=== PATIENT | female | born 1950 | race Caucasian/White ===

== ENCOUNTER → 2018-10-17 | Outpatient (CLI) | payer MEDICARE, OTHER, SELFPAY ==
--- NOTE | 2018-10-17 11:39 | RAD_ITS ---
STUDY: X-RAY - LEFT KNEE REASON FOR EXAM: Female, 68 years old. Medial pain TECHNIQUE: 4 view(s) of the knee. COMPARISON: None. FINDINGS: Normal visualized distal femur. Normal visualized proximal tibia and fibula. Normal proximal tibiofibular articulation. There is mild degenerative arthrosis of the medial femorotibial compartment. Normal lateral femorotibial compartment. There is mild degenerative arthrosis of the patellofemoral articulation. The soft tissue structures are unremarkable. RAD/Knee 4 or More Views IMPRESSION: Mild arthrosis, no demonstrated fracture Electronically Signed: Bernardino Abdul MD at 11:57 EDT , Service support ,
== END | disposition home or self-care (01) ==
LOC: MTRAD 11:36
PROVIDERS: Family Provider Family Medicine; PCP Family Medicine; Referring Provider Family Medicine; Visit Provider Family Medicine
DX: M25.562 Pain in left knee (principal)
CPT/HCPCS: 73564

== ENCOUNTER 2018-11-14 22:09 | Emergency (ER) | payer MEDICARE, OTHER, SELFPAY ==
[2018-11-14 22:10] VITALS: BP 157/80; PULSE 89; RESP 18; TEMP 36.4; O2SAT 95; BMI 29.1
--- NOTE | 2018-11-14 22:15 | RAD_ITS ---
STUDY: X-RAY - LEFT WRIST REASON FOR EXAM: Female, 68 years old. Status post fall. TECHNIQUE: 3 view(s) of the wrist were obtained. COMPARISON: None. FINDINGS: Acute, impacted fracture of the distal radius with small comminuted fragments. No articular extension. No displacement. There is moderate apex volar angulation. Distal ulna, carpal bones, in visualized metacarpal bones are intact. Joint spaces are well-maintained. There is marked soft tissue swelling about the wrist. RAD/Wrist min 3 Views IMPRESSION: Acute fracture of the distal radius, as described. Electronically Signed: Buffy Carranza MD at 22:38 EDT Tel , Service support ,
[2018-11-14] MEDS: HYDROcodone Bitartrate/Apap 5/325 Tablet PO (23:16)
--- NOTE | 2018-11-15 00:07 | RAD_ITS ---
STUDY: X-RAY - LEFT WRIST REASON FOR EXAM: Female, 68 years old. Post reduction TECHNIQUE: 2 view(s) of the wrist were obtained. COMPARISON: November 14, 2018 at 10:17 PM FINDINGS: The impacted dorsally angulated fracture of the distal radius noted in the earlier examination has been reduced. There is a minimal degree of comminution. The radiocarpal articulation is normal. The ulnar styloid is not fractured. Soft tissue swelling of the wrist. A cast is in place RAD/Wrist 2 Views IMPRESSION: The dorsally angulated impacted fracture of the distal radius has been reduced. Excellent alignment of the bony fragments. Electronically Signed: Allen Huizar MD at 2:02 EDT Tel , Service support ,
--- NOTE | 2018-11-15 00:31 | ED.VISSUMM ---
- ER Visit Summary Date of Service: 11/15/18 Chief Complaint: Left wrist injury History of Present Illness: The patient is a 68 F left-hand dominant. She fell on her outstretched left hand. Noticed a deformity to her left wrist. Physical Examination: Patient deformity to left wrist. Skin closed. Neurovascular intact distally. No other findings. Test Results: X-rays show distal radius fracture with dorsal angulation. Emergency Department Course and Treatment: Patient was discussed with Dr. Sanders. Hematoma block performed by me. Sterile technique. Closed reduction performed and patient splinted by me. Patient tolerated this well. Repeat x-rays showed much improved alignment. Patient is neurovascular intact. Tolerating the splint well. Refer to Dr. Yusuf for follow-up. Rest, ice, elevate. [place] for pain. Treatment Plan: As above Disposition: Discharge Impression: 1. Left distal radius fracture, closed, initial encounter This note was generated with [employer] dictation software. It may contain incorrect words, spelling, and punctuation that were not noted in review of the chart prior to signing ED Disposition - Plan for ED Patient: Referrals: Vikram Prince MD [Primary Care Provider] -
--- NOTE | 2018-11-15 00:32 | DCINST.ED_ITS ---
ED Disposition - Plan for ED Patient: Instructions: FRACTURE, Wrist [General] Prescriptions: Hydrocodone Bitart/Apap 5-325 [[place] 5MG-325MG] 1 tab PO Q6H PRN PRN 3 Days #12 tab PRN Reason: Pain Prescription Printed Referrals: Kip Salcido DO [STAFF PHYSICIAN] -
[2018-11-15 00:39] VITALS: BP 137/78; PULSE 85; RESP 16; O2SAT 94
== END 2018-11-15 00:40 | disposition home or self-care (01) ==
PROVIDERS: Emergency Provider Emergency Medicine; Family Provider Family Medicine; PCP Family Medicine
DX: S52.502A Unspecified fracture of the lower end of left radius, initial encounter for closed fracture (principal); W18.30XA Fall on same level, unspecified, initial encounter; Y93.89 Activity, other specified; Y92.89 Other specified places as the place of occurrence of the external cause; Y99.8 Other external cause status
CPT/HCPCS: 25605; 73100; 73110; 99283

== ENCOUNTER → 2018-12-11 | Outpatient (CLI) | payer MEDICARE, OTHER, SELFPAY ==
[2018-11-14 22:10] VITALS: BMI 29.1
--- NOTE | 2018-12-11 09:51 | BD_ITS ---
STUDY: DUAL ENERGY X-RAY ABSORPTIOMETRY / DXA REASON FOR EXAM: Female, 68 years old. The patient is postmenopausal. Loss of height. TECHNIQUE: Bone Mineral Density (BMD) measurements of lumbar spine and bilateral hips were obtained. COMPARISON: Comparison is made with prior study dated August 09, 2016. FINDINGS: Lumbar Spine (L1-L4): g/cm2 (1.482) / T-score (2.3) / Z-score (4.0) Findings are suggestive of normal bone density with a low fracture risk. Left Femur Total: g/cm2 (0.881) / T-score (-1.0) / Z-score (0.4) Left Femoral Neck: g/cm2 (0.833) / T-score (-1.5) / Z-score (0.2) Right Femur Total: g/cm2 (0.836) / T-score (-1.4) / Z-score (0.1) Right Femoral Neck: g/cm2 (0.772) / T-score (-1.9) / Z-score (-0.2) The T-Scores on the most recent prior examination were: Lumbar Spine (L1-L4): There has been improvement of bone density since the previous examination. Left Femur Total: which represents a worsening of 1.6%. Right Femur Total: which represents an improvement of 6.9%. BD/Dexa Bone Density Study IMPRESSION: The patient is considered osteopenic as outlined below according to World [employer] Organization (WHO) criteria with a moderate fracture risk. There has been improvement of bone density since the previous examination. Reference Information: The T-score is the number of standard deviations above or below the standard which is normal for young adults at their peak bone mineral density. The World Health Organization (WHO) interprets the T-scores as follows: Above -1 Normal bone density Between -1 and -2.5 Osteopenia Equal to / or below -2.5 Osteoporosis As a practical clinical guideline, osteopenia may be graded as follows: Mild -1 through -1.5 Moderate -1.6 through -2.0 Severe -2.1 through -2.4 The Z-score is the number of standard deviations above or below age-matched controls. A Z-score of less than -1.5 would be considered abnormal. References: 1. NIH Osteoporosis and Related Bone Diseases http://www.osteo.org 2. International Society for Clinical Densitometry http://www.iscd.org 3. National Osteoporosis Foundation http://www.nof.org Electronically Signed: Jaswant Patterson, at 8:46 EDT , Service support ,
== END | disposition home or self-care (01) ==
LOC: OPBD 09:34
PROVIDERS: Family Provider Family Medicine; PCP Family Medicine; Referring Provider Family Medicine; Visit Provider Family Medicine
DX: M81.0 Age-related osteoporosis without current pathological fracture (principal)
CPT/HCPCS: 77080

== ENCOUNTER 2019-02-05 07:30 | Outpatient (RCR) | payer MEDICARE, OTHER, SELFPAY ==
--- NOTE | 2018-12-12 15:23 | HP.OTEVAL_ITS ---
Patient's Visit Information JONEL ORTEGA is a 68 year old F, referred to Occupational Therapy by Queenie Keating, with a diagnosis of left intartic fx of lower end left radius. Date of Evaluation: 12/12/18 Occupational Therapist: Odilia Bess, JEBR/Evelyne, CHT - Subjective Subjective: This 68 year old female was seen for OT/CHT eval with dx of distal radius fx. pt states she fell down her steps when she went to let her dogs outside. Pt states she fell on . sx was on 11/28/18 pt arrives with custom orthosis and states no concerns with orthosis fit. pt states she has some pain but not much. Reports custom orthosis is fitting her well at this time. pt states she is limited with all ADLs and IADL tasks at this time. pt returns to on Jan.08 - Pain left hand/wrist 0 Pain Intensity Range: 0, 4 - Objective Objective/Observation: incison is clean and dry - ROM Forearm: right 80 left 45 Wrist: right 70/65 left 30/15 ROM Comments: left RD 10 UD 10. 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 Pt will demo an increase in lateral and tripod pinch by 2# to increase pts independent with opening baggies, containers at [facility] by D/C. Goal:: pt will demo a increase in left forearm supination to 70* or greater to incrase ind with bilateral hand cooking tasks by d/c. pt will demo a increase in left wrist flex/ext by 20* to increase ind with bathing and dressing tasks by d/c Goal:: Pt will report pain no greater than 1/10 with use of affected hand with BADLs and IADLs by d/c. Goal:: pt will report a decrease in tingling sensation by 80% to increase pts sleep throught the night by d/c Goal:: Pt will demo understanding of scar mtg. by end of 2nd session to increase tissue extensibility to limit scar adhesions and allow full tendons function by d/c. - Rehabilitation General Assessment: Pt 2 weeks s/p ORIF left distal radius-(pt is no weight bearing until week 8 post op). pt demo healing fx,limited ROM and weakness that prevents her from performing her ADLs and IADLs at IND. level. PT would benefit from skilled OT services 1-2 x week for 4-6 weeks to return pt to PLOF. Order request eval/treat PROM, AROM , AAROM -Today pt was ed.on edema control, scar mtg, and AROM, AAROM and PROM. Pt was given handouts and demo understanding of ex and agree to POC. Rehabilitation Potential: Excellent - Anticipated Interventions Anticipated Interventions: A/AAROM/PROM, Triggerpoint Release, Sensory Retraining, Modalities, Orthoses, Joint Protection/Energy Conservation, Ergonomic Education Other Interventions: strengthening when cleared by ortho - Visit Plan Frequency: 1-2x /Week Duration: 4-6 Weeks General Plan: engage pt with AROM, PROM ex to promote forearm sup,wrist flex/ext and composite fist to increase pts ind. with ADLs and IADLS TEXT: Thank you for the opportunity to evaluate your patient. For Medicare and Medicare HMO plans, please review the plan of care and approve it. It will need to be FAXED BACK to us at [phone] for Medicare purposes. Please let me know if there are questions or concerns regarding this plan of care. Physician Signature: Date:
--- NOTE | 2018-12-31 16:15 | HP.OTEVAL ---
Patient's Visit Information JONEL ORTEGA is a 68 year old F, referred to Occupational Therapy by Queenie Keating, with a diagnosis of left intartic fx of lower end left radius. Date of Evaluation: 12/12/18 Occupational Therapist: Odilia Bess, JEBR/Evelyne, CHT - Subjective Subjective: This 68 year old female was seen for OT/CHT eval with dx of distal radius fx. pt states she fell down her steps when she went to let her dogs outside. Pt states she fell on . sx was on 11/28/18 pt arrives with custom orthosis and states no concerns with orthosis fit. pt states she has some pain but not much. Reports custom orthosis is fitting her well at this time. pt states she is limited with all ADLs and IADL tasks at this time. pt returns to on Jan.08 - Pain left hand/wrist 2 Pain Intensity Range: 0, 4 - Objective Objective/Observation: incison is clean and dry - ROM Forearm: right 80 left 45 Wrist: right 70/65 left 30/15 ROM Comments: left RD 10 UD 10. 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 Pt will demo an increase in lateral and tripod pinch by 2# to increase pts independent with opening baggies, containers at [facility] by D/C. Goal:: pt will demo a increase in left forearm supination to 70* or greater to incrase ind with bilateral hand cooking tasks by d/c. pt will demo a increase in left wrist flex/ext by 20* to increase ind with bathing and dressing tasks by d/c Goal:: Pt will report pain no greater than 1/10 with use of affected hand with BADLs and IADLs by d/c. Goal:: pt will report a decrease in tingling sensation by 80% to increase pts sleep throught the night by d/c Goal:: Pt will demo understanding of scar mtg. by end of 2nd session to increase tissue extensibility to limit scar adhesions and allow full tendons function by d/c. - Rehabilitation General Assessment: Pt 2 weeks s/p ORIF left distal radius-(pt is no weight bearing until week 8 post op). pt demo healing fx,limited ROM and weakness that prevents her from performing her ADLs and IADLs at IND. level. PT would benefit from skilled OT services 1-2 x week for 4-6 weeks to return pt to PLOF. Order request eval/treat PROM, AROM , AAROM -Today pt was ed.on edema control, scar mtg, and AROM, AAROM and PROM. Pt was given handouts and demo understanding of ex and agree to POC. Rehabilitation Potential: Excellent - Anticipated Interventions Anticipated Interventions: A/AAROM/PROM, Triggerpoint Release, Sensory Retraining, Modalities, Orthoses, Joint Protection/Energy Conservation, Ergonomic Education Other Interventions: strengthening when cleared by ortho - Visit Plan Frequency: 1-2x /Week Duration: 4-6 Weeks General Plan: engage pt with AROM, PROM ex to promote forearm sup,wrist flex/ext and composite fist to increase pts ind. with ADLs and IADLS TEXT: Thank you for the opportunity to evaluate your patient. For Medicare and Medicare HMO plans, please review the plan of care and approve it. It will need to be FAXED BACK to us at [phone] for Medicare purposes. Please let me know if there are questions or concerns regarding this plan of care. Physician Signature: Date:
--- NOTE | 2019-01-04 10:36 | HP.OTREVAL ---
Queenie Keating, It has been my pleasure to treat JONEL ORTEGA over the last 8 visits for left intartic fx of lower end left radius. Please see the progress note below for an update on the occupational therapy plan of care! Subjective: pt states she is doing good- notice stiffenss in AM- reports she is improving with ADls and out of brace when sitting, eating and doing dishes. Objective/Function: left wrist 60/30. left forearm supination 70. left it instructor strength 15#. pt is progressing well with her ROM and strength is returning with her engaging in her daily occupations. Plan Frequency: 1x/Week Duration: 3 Weeks Plan: will cont with PRE as laina Goals - Goals Goal:: PT will demo an increase in it instructor strength by 20# to increase independent with basic occupations of daily living to return pt to [facility] by D/C. Pt will demo an increase in lateral and tripod pinch by 2# to increase pts independent with opening baggies, containers at [facility] by D/C. Goal:: pt will demo a increase in left forearm supination to 70* or greater to incrase ind with bilateral hand cooking tasks by d/c. pt will demo a increase in left wrist flex/ext by 20* to increase ind with bathing and dressing tasks by d/c Goal:: Pt will report pain no greater than 1/10 with use of affected hand with BADLs and IADLs by d/c. Goal:: pt will report a decrease in tingling sensation by 80% to increase pts sleep throught the night by d/c Goal:: Pt will demo understanding of scar mtg. by end of 2nd session to increase tissue extensibility to limit scar adhesions and allow full tendons function by d/c. Anticipated Interventions Anticipated Interventions: A/AAROM/PROM, Triggerpoint Release, Sensory Retraining, Modalities, Orthoses, Joint Protection/Energy Conservation, Ergonomic Education Other Interventions: strengthening when cleared by ortho Please do not hesitate to contact me at [phone] by phone or if you have questions or concerns regarding this new plan of care! Sincerely, Odilia Bess, OTR/L, CHT
--- NOTE | 2019-02-05 08:02 | OTREVAL_ITS ---
Queenie Keating, It has been my pleasure to treat JONEL ORTEGA over the last 12 visits for left intartic fx of lower end left radius. Please see the progress note below for an update on the occupational therapy plan of care! Subjective: pt states she is doing good- has increased swelling no pain just swelling following tasks Objective/Function: pt demo with 62/35. 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 pt reports she is performing ADLS and IADls with min. difficulty. Pt has made good gains with ROM and strength Plan Plan: pt to work for 2 weeks on he HEP Goals - Goals Goal:: PT will demo an increase in emergency veterinary technician strength by 20# to increase independent with basic occupations of daily living to return pt to [facility] by D/C. Pt will demo an increase in lateral and tripod pinch by 2# to increase pts independent with opening baggies, containers at [facility] by D/C. Goal:: pt will demo a increase in left forearm supination to 70* or greater to incrase ind with bilateral hand cooking tasks by d/c. pt will demo a increase in left wrist flex/ext by 20* to increase ind with bathing and dressing tasks by d/c Goal:: Pt will report pain no greater than 1/10 with use of affected hand with BADLs and IADLs by d/c. Goal:: pt will report a decrease in tingling sensation by 80% to increase pts sleep throught the night by d/c Goal:: Pt will demo understanding of scar mtg. by end of 2nd session to increase tissue extensibility to limit scar adhesions and allow full tendons function by d/c. Anticipated Interventions Anticipated Interventions: A/AAROM/PROM, Triggerpoint Release, Sensory Retraining, Modalities, Orthoses, Joint Protection/Energy Conservation, Ergonomic Education Other Interventions: strengthening when cleared by ortho Please do not hesitate to contact me at [phone] by phone or if you have questions or concerns regarding this new plan of care! Sincerely, Odilia Bess, OTR/L, CHT
--- NOTE | 2019-02-08 10:25 | HP.OTDCSUM ---
HP - OT D/C Summary It has been my pleasure to treat JONEL ORTEGA under orders from Queenie Keating, for the diagnosis of left intartic fx of lower end left radius for a total of 12 visit(s). Please see the following information for a summary of their discharge status. - Overall Improvement % Improvement: 80 - Objective Objective/Function: pt demo with 62/35. left partition notcher strength 25-30#. pt reports she is performing ADLS and IADls with min. difficulty. Pt has made good gains with ROM and strength - Goals Patient Goals: Regain Mobility, Regain Strength, Decrease Pain, Improve Fine Motor Skills, Use Hand/Wrist/Arm Normally Again, Sleep Better, Decrease Tingling/Numbness, Increase ROM, Be More Independent in ADLS Goal:: PT will demo an increase in partition notcher strength by 20# to increase independent with basic occupations of daily living to return pt to [facility] by D/C. Pt will demo an increase in lateral and tripod pinch by 2# to increase pts independent with opening baggies, containers at [facility] by D/C. Goal:: pt will demo a increase in left forearm supination to 70* or greater to incrase ind with bilateral hand cooking tasks by d/c. pt will demo a increase in left wrist flex/ext by 20* to increase ind with bathing and dressing tasks by d/c Goal:: Pt will report pain no greater than 1/10 with use of affected hand with BADLs and IADLs by d/c. Goal:: pt will report a decrease in tingling sensation by 80% to increase pts sleep throught the night by d/c Goal:: Pt will demo understanding of scar mtg. by end of 2nd session to increase tissue extensibility to limit scar adhesions and allow full tendons function by d/c. - Plan Plan: pt to cont with her HEP - D/C Information If there are questions or concerns regarding this patient's occupational therapy, please fell free to call me at [phone]. Thank you for the referral of this patient. Sincerely, Odilia Bess, OTR/L, CHT
== END 2019-02-05 19:00 | disposition home or self-care (01) ==
LOC: OT 07:30
PROVIDERS: Family Provider Family Medicine; PCP Family Medicine; Referring Provider Orthopaedic Surgery Hand Surgery; Visit Provider Orthopaedic Surgery Hand Surgery
DX: S52.572D Other intraarticular fracture of lower end of left radius, subsequent encounter for closed fracture with routine healing (principal)
CPT/HCPCS: 97110; 97140; 97166; 97530

== ENCOUNTER → 2019-05-06 | Outpatient (CLI) | payer MEDICARE, OTHER, SELFPAY ==
--- NOTE | 2019-05-06 15:56 | RAD_ITS ---
STUDY: X-RAY - LEFT KNEE REASON FOR EXAM: Female, 69 years old. LEFT knee pain TECHNIQUE: 4 view(s) of the knee. COMPARISON: None. FINDINGS: Normal visualized distal femur. Normal visualized proximal tibia and fibula. Normal proximal tibiofibular articulation. There is no demonstrated fracture. Normal medial femorotibial compartment. Normal lateral femorotibial compartment. Normal patellofemoral articulation. There is no demonstrated joint effusion. The soft tissue structures are unremarkable. RAD/Knee 4 or More Views IMPRESSION: Normal x-ray examination of the knee. Electronically Signed: Alfred Francis MD at 16:54 EST , Service support ,
== END | disposition home or self-care (01) ==
LOC: MTRAD 15:53
PROVIDERS: PCP Family Medicine; Referring Provider Nurse Practitioner Family; Visit Provider Nurse Practitioner Family
DX: M25.562 Pain in left knee (principal)
CPT/HCPCS: 73564

== ENCOUNTER 2019-06-18 09:30 | Outpatient (RCR) | payer MEDICARE, OTHER, SELFPAY ==
--- NOTE | 2019-05-15 09:44 | HP.PTEVAL ---
Patient's Visit Information JONEL ORTEGA is a 69 year old F referred to Physical Therapy by LAKESHA Rangel with a diagnosis of L knee OA. Date of Evaluation: 05/15/19 Physical Therapist: Vikram Dee, DPT, OCS, CSCS - Visit Plan Frequency: 2-3x /Week Duration: 2-4 Weeks Plan: 2-3x/week for 3-4 weeks for. 1. US nonthermal medial R knee joint line. 2. rollout quad and stretch, leg pull. 3. hip and knee painfree strength adn progress to HEP. 4. MH as needed. - Subjective Subjective: L knee pain, they state that it is arthritis. Been going on since last October. Worse since then. Insidious onset. Pain is anterior and daily to 7/10. Worse if on it alot or sits too long. Mostly comfortable when not on it but it does keep her up at night. Wakes her up in middle of night. Causes her to have to stop some home activities or walking at home for short time. Basic ADLs are Ok. Steps at home can hurt but not all the time. Sitting in car can be painful. No regular exercises. Hobbies: aqua class here adn it helps. 2 x/week. Not employed. Does house stuff other days and goes out with friends. - Pain L anterior knee. Pain Intensity (Out of 10): 1 Pain Intensity Range: 1, 7 - Objective Walks normal this mroning, steps reciprocal without rail but pain with using L knee in WB. Trasnfers bed and chair I. B knee AROM ful but pain end range of flexion, quad tight L vs R as heel is 3 inches from buttock on L nad touches buttock on R. patellar mobility is good. joint line is tender L medial knee. Strength knee L ext 4, R 4, flexion 4+ B. Some pain with ext. Hip strength abd, ext, flexion 3+, adduction 4. - ant drawer, - bounce home, - varus and valgus, slight + patellar grind. + scour medial L. - Goals Goal 1:: L knee feels 90% better at 1/10 at worst pain Goal Time Frame: 4-6 Weeks Goal 2:: LEFS <25% disability Goal Time Frame: 4-6 Weeks Goal 3:: I appropriate HEP to minimzie future problems including management of condtiion. Goal Time Frame: 4-6 Weeks Goal 4:: Steps without pain. Goal Time Frame: 4-6 Weeks - Rehabilitation Potential Physical Therapy Diagnosis: L knee medial OA Rehabilitation Potential: Good - Anticipated Interventions Patient/Client Instruction: Educate patient on: Condition, Plan of Care For the Purpose of:: To decrease pain, To increase tolerance to activity/condition/position, To improve ability of physical actions for home/community/work/leisure, To improve gait and locomotor functions Therapeutic Exercise to Include: Strength training, Flexibilty training, Gait and locomotor training, Neuromotor development, Passive ROM, Active ROM For the Purpose of:: To decrease pain, To increase tolerance to activity/condition/position, To improve ability of physical actions for home/community/work/leisure, To improve gait and locomotor functions Manual Therapy Techniques to Include: Mobilization, Passive ROM For the Purpose of:: To improve muscle performance and motor function, To increase tolerance to activity/condition/position, To improve performance and independence with ADL's Thermo therapy (hot pack): Yes For the Purpose of:: To decrease pain Thank you for the opportunity to evaluate your patient. For Medicare and Medicare HMO plans, please review the plan of care and approve it. It will need to be FAXED BACK to us at [phone] for Medicare purposes. For Medicare only, by signing this I certify the plan of care. Please let me know if there are questions or concerns regarding this plan of care. Physician Signature: Date:
--- NOTE | 2019-06-18 10:14 | HP.PTDCSUM ---
It has been my pleasure to treat JONEL ORTEGA referred by LAKESHA Rangel, with the diagnosis of L knee OA for a total of 9 visit(s). Discharge Date: 06/18/19 Please see the following information for a summary of their discharge status. Subjective: Feeling better. Less pain, less often. Some days without pain. Pain in last week to 2/10 if walks alot > one mile. Sleep is OK. Activiites are pretty normal. HEP at counter and mat daily. Feels comfortable doing gym ex when it opens up. Will see doctor in early July. L anterior knee. Pain Intensity (Out of 10): 0 L IT band Pain Intensity (Out of 10): 0 % Improvement: 80 Objective/Function: Full aROM without pain B knees. SLR without lag. steps are reciprocal without rail but has slight weakness eccentrically descending. Balance is good and patient got leg tangled up getting out of truck when whe fell and it was not knee or balance related. Goal 1:: L knee feels 90% better at 1/10 at worst pain Goal Progress: Progressing Goal 2:: LEFS <25% disability Goal Progress: Goal Met Goal 3:: I appropriate HEP to minimzie future problems including management of condtiion. Goal Progress: Goal Met Goal 4:: Steps without pain. Goal Progress: Goal Met Plan: d/c to HEP Discharge Comments: Will continue HEP until gym opens then will reinitiate pool and gym exercises in that order adn feels comfortable doing so. If there are questions or concerns regarding this patient's physical therapy, please feel free to call me at [phone]. Thank you for the referral of this patient. Sincerely, Vikram Dee, DPT, OCS, CSCS
== END 2019-06-18 19:00 | disposition home or self-care (01) ==
LOC: PT 09:30
PROVIDERS: PCP Family Medicine; Referring Provider Nurse Practitioner Family; Visit Provider Nurse Practitioner Family
DX: M17.12 Unilateral primary osteoarthritis, left knee (principal)
CPT/HCPCS: 97035; 97110; 97140; 97161; 97164

== ENCOUNTER 2020-02-14 09:02 | Day surgery (SDC) | payer MEDICARE, OTHER, SELFPAY ==
--- NOTE | 2020-02-14 09:30 | PCM.HP.STD ---
Problem List (1) Personal history of colonic polyps Status: Acute History of Present Illness Date of Admission: 02/14/20 The patient is a 70 year old F has a personal history of colon polyps. September 15 colonoscopy resected a tubular adenoma from the cecum. She said that I told her the procedure was inconclusive. She was tortuous. She has not had any bright red blood per rectum or melena. No abdominal pain. Past Medical History Allergies No Known Allergies Allergy (Verified 02/11/20 14:18) Home Medications: Ambulatory Orders Medication Instructions Recorded Alendronate Sodium 150 mg PO QWEEK 11/14/18 Levothyroxine [Synthroid] 88 mcg PO DAILY 11/14/18 Niacin [Niaspan] 500 mg PO DAILY 11/14/18 Simvastatin 10 mg PO DAILY 11/14/18 Smoking Status: Never smoker Review of Systems Constitutional: Denies: Fever Cardiovascular: Denies: Chest Pain, Chest Pressure Respiratory: Denies: Cough, Shortness of Breath Gastrointestinal: Denies: Abdominal Pain, Hematochezia, Melena Endocrine: Denies: Change in Body Habitus VTE Information - Inpt Only VTE Present on Admission: No Patient Problems: Active and Suspected Problems Personal history of colonic polyps (Acute) - Physical Exam Vitals/I&O's: Body Mass Index (BMI) 29.1 General: Alert, Oriented x3 Oral: Moist Mucosa Lungs: Clear to auscultation, Normal air movement Cardiovascular: Regular rate, Regular Rhythm Abdomen: Soft, Non Tender Extremities: No Calf Tenderness Psych/Mental Status: Normal Affect Microbiology Past 72 Hours 02/12/20 09:05 Interface Orders SARS-CoV-2 Antigen (Rapid) - Final Assessment/Plan All Active Problems Personal history of colonic polyps (Acute) I recommended the patient a colonoscopy with possible biopsy or polypectomy is indicated. She is aware of the technique, benefit, risk, alternatives. She has had an opportunity to ask and have questions answered. She presents via open access today. We will proceed as noted. Mark May M.D., F.A.C.S.
[2020-02-14 09:32] VITALS: BP 124/74; PULSE 69; RESP 16; TEMP 36.2; O2SAT 96; BMI 28.2
[2020-02-14] MEDS: Lactated Ringers 1,000 ML 100 ML IV (09:40)
[2020-02-14 10:30] VITALS: BP 124/74; BP 126/78; PULSE 81; RESP 16; TEMP 36.1; O2SAT 99
--- NOTE | 2020-02-14 10:33 | OP.COLON_ITS ---
Patient Name: Glenys Briggs Procedure Date: 02/14/2020 9:56 AM Date of : 1950 Age: 70 Procedure: Colonoscopy Indications: High risk colon cancer surveillance: Personal history of colonic polyps Providers: Mark May MD Referring MD: Mark May MD Medicines: See the Anesthesia note for documentation of the administered medications Patient Profile: Last Colonoscopy: September 2015. Complications: No immediate complications. Procedure: Pre-Anesthesia Assessment: - Prior to the procedure, a History and Physical was performed, and patient medications and allergies were reviewed. The patient's tolerance of previous anesthesia was also reviewed. The risks and benefits of the procedure and the sedation options and risks were discussed with the patient. All questions were answered, and informed consent was obtained. Prior Anticoagulants: The patient has taken no previous anticoagulant or antiplatelet agents. ASA Grade Assessment: II - A patient with mild systemic disease. After reviewing the risks and benefits, the patient was deemed in satisfactory condition to undergo the procedure. After I obtained informed consent, the scope was passed under direct vision. Throughout the procedure, the patient's blood pressure, pulse, and oxygen saturations were monitored continuously. The adult colonoscope was introduced through the anus and advanced to the cecum, identified by appendiceal orifice and ileocecal valve. The colonoscopy was performed without difficulty. The patient tolerated the procedure well. The quality of the bowel preparation was good. The ileocecal valve and the appendiceal orifice were photographed. Scope In: 10:12:21 AM Scope Withdrawal Time 0 hours 6 minutes 55 seconds Scope Out: 10:26:20 AM Total Procedure Duration Time 0 hours 13 minutes 59 seconds Findings: The digital rectal exam findings include non-thrombosed external hemorrhoids, non-thrombosed internal hemorrhoids and internal hemorrhoids that prolapse with straining, but spontaneously regress to the resting position (Grade II). Multiple diverticula were found in the entire colon. The left colon was moderately tortuous. Advancing the scope required changing the patient to a supine position and using manual pressure. Impression: - Non-thrombosed external hemorrhoids, non-thrombosed internal hemorrhoids and internal hemorrhoids that prolapse with straining, but spontaneously regress to the resting position (Grade II) found on digital rectal exam. - Diverticulosis in the entire examined colon. - Tortuous colon. - No specimens collected. Recommendation: - Discharge patient to home. - Resume previous diet. - Continue present medications. - Repeat colonoscopy is not recommended due to current age (66 years or older) for screening purposes. Procedure Code(s): --- Professional --- 53579, Colonoscopy, flexible; diagnostic, including collection of specimen(s) by brushing or washing, when performed (separate procedure) Diagnosis Code(s): --- Professional --- Z86.010, Personal history of colonic polyps K64.1, Second degree hemorrhoids K64.4, Residual hemorrhoidal skin tags K57.30, Diverticulosis of large intestine without perforation or abscess without bleeding Q43.8, Other specified congenital malformations of intestine CPT copyright 2017 [employer]. All rights reserved. The codes documented in this report are preliminary and upon explosive ordnance disposal specialist review may be revised to meet current compliance requirements. Mark May MD 02/14/2020 10:33:27 AM This report has been signed electronically. Number of Addenda: 0 Note Initiated On: 02/14/2020 9:56 AM
--- NOTE | 2020-02-14 10:34 | OP.CCLET_ITS ---
02/14/2020 Vikram Prince [address] [place] [address] Re : Colonoscopy procedure for Glenys Briggs Dear Dr. Prince This procedure was performed on Friday, February 14, 2020. My impressions and recommendations are as follows: Impressions : - Non-thrombosed external hemorrhoids, non-thrombosed internal hemorrhoids and internal hemorrhoids that prolapse with straining, but spontaneously regress to the resting position (Grade II) found on digital rectal exam. - Diverticulosis in the entire examined colon. - Tortuous colon. - No specimens collected. Recommendations : - Discharge patient to home. - Resume previous diet. - Continue present medications. - Repeat colonoscopy is not recommended due to current age (66 years or older) for screening purposes. My findings are described in the full procedure note, which is enclosed. If I can be of further assistance, please feel free to contact me at Doctor phone number(s): Work: . Sincerely, Mark May MD 02/14/2020 10:33:27 AM This report has been signed electronically.
[2020-02-14 10:35] VITALS: BP 124/74; BP 132/82; PULSE 78; RESP 16; O2SAT 99
[2020-02-14 10:40] VITALS: BP 124/74; BP 132/80; PULSE 80; RESP 16; O2SAT 99
[2020-02-14 10:45] VITALS: BP 124/74; BP 130/79; PULSE 81; RESP 16; TEMP 36.7; O2SAT 99
[2020-02-14 11:10] VITALS: BP 124/74
== END 2020-02-14 11:11 | disposition home or self-care (01) ==
LOC: EN 09:02 → AC 09:09
PROVIDERS: PCP Family Medicine; Referring Provider Surgery; Visit Provider Surgery
PROC: 0DJD8ZZ Inspection of Lower Intestinal Tract, Via Natural or Artificial Opening Endoscopic (ICD-10-PCS; CPT 45378; principal; 2020-02-14 10:10)
DX: K57.30 Diverticulosis of large intestine without perforation or abscess without bleeding (principal); K64.1 Second degree hemorrhoids; Z86.010 Personal history of colon polyps; E78.00 Pure hypercholesterolemia, unspecified; E06.9 Thyroiditis, unspecified; Z20.828 Contact with and (suspected) exposure to other viral communicable diseases; Z79.899 Other long term (current) drug therapy
CPT/HCPCS: 45378; 87426; C9803; J7120; J2405

== ENCOUNTER 2020-05-04 13:08 | Outpatient (RCR) | payer MEDICARE, OTHER, SELFPAY | END 2020-05-04 23:59 | LOC: IMMUN 13:08 | PROVIDERS: PCP Family Medicine; Visit Provider Family Medicine | DX: Z23 Encounter for immunization (principal) | CPT/HCPCS: 0011A; 0012A ==

== ENCOUNTER 2021-05-03 07:31 | Outpatient (CLI) | payer MEDICARE, OTHER, SELFPAY ==
--- NOTE | 2021-05-03 07:34 | BI_ITS ---
MAMMOGRAPHY - BILATERAL SCREENING REASON FOR EXAM: Female, 71 years old. Routine annual screening examination. PERTINENT HISTORY: Non-contributory. TECHNIQUE: Digital bilateral breast jamison (3D mammographic acquisition) in the CC and MLO projections. 2-D mediolateral oblique (MLO) and craniocaudad (CC) views of both breasts were obtained. CAD: Full Field Digital Mammography with Computer Added Detection was performed. COMPARISON: Comparison is made with prior study dated 08/09/2016 and 06/12/2014. FINDINGS: Breast Composition: The breasts are almost entirely fatty. There are no dominant masses or suspicious calcifications. No other significant abnormalities are identified. There has been no significant change since the prior study. BI/SCRN MAMM (CAD)W/JAMISON BILAT IMPRESSION: Stable bilateral screening mammogram. Yearly follow-up mammogram recommended. (A) ASSESSMENT CATEGORY: BIRADS Category 1: Negative. A letter regarding these results will be sent to the patient by the facility within 30 days. Approximately 10% of breast cancers are not detected by mammography. A normal mammogram should not delay biopsy of a clinically suspicious abnormality. [id number] Electronically Signed: Jaswant Patterson MD at 8:36 EST ,
== END 2021-05-03 23:59 | disposition home or self-care (01) ==
LOC: OPBI 07:31
PROVIDERS: PCP Family Medicine; Visit Provider Nurse Practitioner Family
DX: Z12.31 Encounter for screening mammogram for malignant neoplasm of breast (principal)
CPT/HCPCS: 77063; 77067

== ENCOUNTER 2021-06-01 10:01 | Outpatient (CLI) | payer MEDICARE, OTHER, SELFPAY ==
[2021-06-01 12:45] LABS: Vitamin D,25 Hydroxy 81.7 ng/mL
[2021-06-01 12:50] LABS: AST(SGOT) 26 U/L (15-37); Alanine Aminotransfer ALT/SGPT 26 U/L (13-56); Albumin, Serum 3.6 g/dL (3.2-5.0); Alkaline Phosphatase 65 U/L (45-117); Bilirubin, Direct 0.09 mg/dL (0.00-0.30); Cholesterol 161 mg/dL (200); Globulin 3.7 g/dL (2.2-4.2); High Density Lipoprotein 52 mg/dL; Protein, Total 7.3 g/dL (6.4-8.2); Triglycerides 145 mg/dL; Very Low Density Lipoprotein 29 mg/dL (5-40)
[2021-06-01 13:01] LABS: PTHIN 69.6 pg/mL (18.4-80.1)
== END 2021-06-01 23:59 | disposition home or self-care (01) ==
LOC: MFPLAB 10:01
PROVIDERS: PCP Family Medicine; Referring Provider Family Medicine; Visit Provider Family Medicine
DX: E78.2 Mixed hyperlipidemia (principal); M81.0 Age-related osteoporosis without current pathological fracture
CPT/HCPCS: 36415; 80061; 80076; 82306; 83970

== ENCOUNTER → 2022-03-25 | Outpatient (CLI) | payer MEDICARE, OTHER, SELFPAY ==
--- NOTE | 2022-03-25 08:52 | RAD_ITS ---
STUDY: X-RAY - LEFT ELBOW REASON FOR EXAM: Female, 72 years old. Left elbow pain. No known injury. TECHNIQUE: 2 view(s) of the elbow. COMPARISON: None. FINDINGS: Normal visualized humerus, radius and ulna. Normal radiocapitellar and ulnotrochlear articulations. The soft tissue structures are unremarkable. RAD/Elbow 2 Views IMPRESSION: Normal x-ray examination of the elbow. Electronically Signed: Jaswant Patterson MD at 15:42 EST ,
== END | disposition home or self-care (01) ==
LOC: MTRAD 08:51
PROVIDERS: PCP Family Medicine; Referring Provider Internal Medicine Endocrinology, Diabetes & Metabolism; Visit Provider Internal Medicine Endocrinology, Diabetes & Metabolism
DX: M25.522 Pain in left elbow (principal)
CPT/HCPCS: 73070

== ENCOUNTER → 2022-05-05 | Outpatient (CLI) | payer MEDICARE, OTHER, SELFPAY ==
--- NOTE | 2022-05-05 09:19 | BI_ITS ---
MAMMOGRAPHY - BILATERAL SCREENING REASON FOR EXAM: Female, 72 years old. Routine annual screening examination. PERTINENT HISTORY: Non-contributory. TECHNIQUE: Digital bilateral breast jamison (3D mammographic acquisition) in the CC and MLO projections. 2-D mediolateral oblique (MLO) and craniocaudad (CC) views of both breasts were obtained. CAD: Full Field Digital Mammography with Computer Added Detection was performed. COMPARISON: Comparison is made with prior examination of December 01, 2021 and August 09, 2016. FINDINGS: Breast Composition: The breasts are almost entirely fatty. There are no dominant masses or suspicious calcifications. No other significant abnormalities are identified. There has been no significant change since the prior study. BI/SCRN MAMM (CAD)W/JAMISON BILAT IMPRESSION: Stable bilateral screening mammogram. Yearly follow-up mammogram recommended. (A) ASSESSMENT CATEGORY: BIRADS Category 1: Negative. A letter regarding these results will be sent to the patient by the facility within 30 days. Approximately 10% of breast cancers are not detected by mammography. A normal mammogram should not delay biopsy of a clinically suspicious abnormality. [id number] Electronically Signed: Jaswant Patterson MD at 10:18 EST ,
== END | disposition home or self-care (01) ==
LOC: OPBI 09:17
PROVIDERS: PCP Family Medicine; Visit Provider Nurse Practitioner Family
DX: Z12.31 Encounter for screening mammogram for malignant neoplasm of breast (principal)
CPT/HCPCS: 77063; 77067

== ENCOUNTER → 2022-09-27 | Outpatient (CLI) | payer MEDICARE, OTHER, SELFPAY ==
[2022-09-27 10:10] LABS: Absolute Lymphocyte Count 2.44 X10^3/uL (0.83-4.51); Absolute Neutrophil Count 2.6 X10^3/uL (2.0-7.7); Basophil# 0.05 X10^3/uL; Basophil% 0.8 % (0-1); Eosinophil# 0.24 X10^3/uL; Hematocrit 44.6 % (37-47); Hemoglobin 14.2 g/dL (12.0-15.0); Lymphocyte # 2.44 X10^3/ul (0.83-4.51); Lymphocyte % 40.3 % (19-41); Mean Corp Hgb Conc 31.8 g/dL (32-36); Mean Corpuscular Hgb 27.9 pg (27.0-32.0); Mean Corpuscular Volume 87.6 fL (81-99); Mean Platelet Vol. 10.1 fl (6.2-12.0); Monocyte% 11.6 % (0-10); NRBC Flagged by Analyzer 0 % (0-5); Neutrophil % 42.8 % (47-70); Platelet Count 264 K/mm3 (150-450); RBC Distribution Width CV 13.1 % (11.6-14.6); RBC Distribution Width SD 41.6 fl (35.1-43.9); Red Blood Count 5.09 M/mm3 (4.2-5.4); White Blood Count 6.1 K/mm3 (4.4-11.0)
[2022-09-27 10:50] LABS: ALB/GLOB Ratio 1.1 RATIO (0.9-2.4); AST(SGOT) 22 U/L (15-37); Alanine Aminotransfer ALT/SGPT 26 U/L (13-56); Albumin, Serum 3.6 g/dL (3.2-5.0); Alkaline Phosphatase 51 U/L (45-117); Anion Gap 2 (5-15); BUN 14 mg/dL (7-18); BUN/Creat Ratio 16.5 RATIO (10-20); Calcium,Total 8.7 mg/dL (8.5-10.1); Chloride 110 mmol/L (98-107); Cholesterol 140 mg/dL (200); Creatinine, Serum 0.85 mg/dL (0.55-1.02); EST Glomerular Filtration Rate 70 mL/min (>60); Est Glom Filt Rate - Afr Amer 85 mL/min (>60); Globulin 3.4 g/dL (2.2-4.2); Glucose 90 mg/dL (74-106); High Density Lipoprotein 53 mg/dL; Magnesium 2.3 mg/dL (1.6-2.6); Sodium Level 140 mmol/L (136-145); Triglycerides 144 mg/dL; Very Low Density Lipoprotein 29 mg/dL (5-40)
[2022-09-27 10:55] LABS: Vitamin B12 307 pg/mL (211-911)
== END | disposition home or self-care (01) ==
LOC: MFPLAB 09:02
PROVIDERS: PCP Family Medicine; Visit Provider Family Medicine
DX: E78.2 Mixed hyperlipidemia (principal); G56.01 Carpal tunnel syndrome, right upper limb
CPT/HCPCS: 36415; 80053; 80061; 82607; 82746; 83735; 85025

== ENCOUNTER 2022-11-03 11:00 | Outpatient (RCR) | payer MEDICARE, OTHER, SELFPAY ==
--- NOTE | 2022-09-29 13:31 | HP.OTEVAL_ITS ---
Patient's Visit Information Visit Information Visit Information: JONEL ORTEGA is a 72 year old F, referred to Occupational Therapy by Dr. Vikram Prince MD, with a diagnosis of R carpal tunnel. Date of Evaluation: 09/28/22 Occupational Therapist: Odilia Bess, ISH/Evelyne, CHT Subjective Subjective: 72-year-old patient arrives due to concerns for R carpal tunnel syndrome. Pt saw Dr. Prince on 09/27/2022, stated symptoms began Mid-August and are occasional. Pt reports paresthesia when driving or carrying groceries in digits 2-3 and at times 4th. Pt performing pool exercises 2x a week, pt reports difficulty holding onto weights while in water and occasionally dropping items. Pt is left-hand dominant. Can use R hand just numb and when it gets numb it gets really stiff. States with driving and carrying bags right hand will get numb/tingly. Pt would like to know what she can do to decrease symptoms. ADLs Kitchen: Open jars Miscellaneous: Carry shopping bag and Drive Comments: Lifting and grabbing purse and bags Limited due to L shoulder pain Riding a bike- holding a bar Objective Objective/Observation: Pt winces when performing shoulder flexion due to L shoulder pain ROM Opposition: Bilateral 10 ROM Comments: RUE ROM WFL L shoulder limited only able to reach ~80 degrees within pain free ROM - pt seeing PT to address this deficit Strength School Business Manager: R 8# L 40# Lateral Pinch: R 4# L 10# Tripod Pinch: R 2# L 6# Sensation Thumb: R thumb 3.81 Sensation Comments: Rest of right fingers and L thumb normal testing at 2.83 Nine Hole Peg Right: 24 sec. Left: 20 sec. Comments: FMS WNL In-Hand Manipulation Finger to Palm Translation: Normal - Right Palm to Finger Translation: Normal - Right Comments: Did not test L hand Quick DASH-Disab of Arm,Shoulder& Hand Quick DASH Score: 42.5000 Goals Goal:School Business Manager/Pinch strength at least 75% of unaffected hand: Yes Comment: decreased strength with RUE Goal:No pain with affected hand use: Yes Other Goal: Pt will report increase in sensation in R thumb to normal 2.83 to perform ADL/IADL by discharge. Pt will report decrease in numbness/stiffness incidence when performing ADL/IADL tasks 75% of time. Pt to demo overall increased indep in ADL/IADL tasks by decreased total DASH score by 10 points by discharge. Rehabilitation General Assessment: Pt reports decreased sensation in digits 2-[address] without some pain. Pt demonstrates decreased strength in hand and RUE while performing tasks. Pt will benefit from skilled OT 1-2x a week for 4 weeks for increased ability to perform ADL and IADL tasks. Pt educated in radial nerve glides and hand median nerve glides. Pt agreeable to OT POC and verbalizes understanding of nerve glides. Therapy session was directly supervised and doc. approved by Odilia Bess OTR/Evelyne, CHT. Rehabilitation Potential: Excellent Anticipated Interventions Anticipated Interventions: A/AAROM/PROM, Strengthening, Triggerpoint Release, Modalities, Joint Protection/Energy Conservation, Ergonomic Education, Fine Motor Coord/Jevon, Sensory Stimulation, ADL Training, Education re assistive Equipment, Education re Diagnosis and Home Program Visit Plan Frequency: 1-2x /Week Duration: 4 Weeks General Plan: 8 visits if needed Postural strengthening Sensory stimulation strengthening in RUE Ergonomics Energy conservation Assistive Device TEXT: Thank you for the opportunity to evaluate your patient. For Medicare and Medicare HMO plans, please review the plan of care and approve it. It will need to be FAXED BACK to us at [phone] for Medicare purposes. Please let me know if there are questions or concerns regarding this plan of care. Physician Signature: Date:
--- NOTE | 2022-10-04 08:58 | HP.PTEVAL_ITS ---
Patient's Visit Information Visit Information Visit Information: JONEL ORTEGA is a 72 year old F referred to Physical Therapy by Dr. Vikram Prince MD with a diagnosis of Chronic Left RTC Tendonitis. Date of Evaluation: 10/04/22 Physical Therapist: Jennifer Vuong DPT Visit Plan Frequency: 2x /Week Duration: 4 Weeks Plan: Focus on left UE ROM- GENTLE- isometric and postural strength/stabilization HEP Given IE: Upper Trap Stretch, Supine Cane Flexion, Wall Wash, Table Walk Away Subjective Subjective: Left shoulder pain- insidious onset- she has had 2 RTC surgeries on the same shoulder- the last one was about 5 years ago. It is aggravated by moving her shoulder above 90 degrees Worst: 5/10- she knows its there so she tries to avoid using it. Eases: keeping it by her side. Best: 0/10. Left hand dominate. Saw PCP he told her to try a little bit of PT and then he will send her to ortho. She is taking the steps prior to seeing ortho- last time she saw Dr. Salcido- so she knows she needs a replacement so she will see Dr. Sanders. 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 The pain is on the anterior shoulder- does radiate to the deltoid. Stops her in her tracks. Describes the pain as sharp. No recent x-rays or MRI of the shoulder. She does aqua classes and she tries to use the shoulder but she is unable too. She can only use the bells in the water for so long then it starts to bother her. She is able to perform all of her ADL's. Blow drying her hair is a little challenging but she just bends her head to the side. No OLIVARES, blurred vision, dizziness or neck pain. Sleep: disturbed- hard to sleep on that side. PMHx: HTN , osteoporosis Meds: proleia, niaspan. Objective Objective: Posture: FH, RS- guarding of the left UE Gait: decreased arm swing of the left UE with mild guarding- no LE deviation noted- good trae ROM: cervical: Flexion/Extn: WNL, Left SB and left rotation: painful and decreased by 50% Right SB and rotation: no pain but decreased by 25%. Shoulder: AROM: Flexion: 60 degrees with pain abd: 50 degrees with pain and compensation IR: bra line ER: 20 degrees with pain PROM: Flexion: 110 degrees with pain at end range Abd: 50 degrees with pain, ER: 60 degrees with pain. Strength: Supervisor Forming Department: 10lbs, Elbow: 4/5, Shoulder: isometric: 4-/5 at neutral with mild increase in discomfort. Sensation: WFL to gross touch bilateral. Balance/Special Test Scores Quick DASH Score: 68.1800 Goals Goal 1:: Patient will be I with HEP and progression Goal Time Frame: 4-6 Weeks Goal 2:: Patient will demo increase of 20 degrees of ROM in all planes of the left shoulder Goal Time Frame: 4-6 Weeks Goal 3:: Patient will maintain proper posture t/o tx session to demo increased scap s/s. Goal Time Frame: 4-6 Weeks Goal 4:: Patient will report 80% improvement Goal Time Frame: 4-6 Weeks Rehabilitation Potential Physical Therapy Diagnosis: Patient presents with hypomobility- she has decreased UE ROM and scapular strength/stabilization and muscular endurance of the left UE leading to pain and decreased ability to perform ADL's. Rehabilitation Potential: Fair Anticipated Interventions Therapeutic Exercise to Include: Strength training, Endurance training, Body mechanics, Postural training, Flexibilty training, Passive ROM, Active ROM and Scapular Strength/Stabilization TENS: Yes Cryotherapy (ice pack, ice massage): Yes Thermo therapy (hot pack): Yes Text: Thank you for the opportunity to evaluate your patient. For Medicare and Medicare HMO plans, please review the plan of care and approve it. It will need to be FAXED BACK to us at [phone] for Medicare purposes. For Medicare only, by signing this I certify the plan of care. Please let me know if there are questions or concerns regarding this plan of care. Physician Signature: Date:
--- NOTE | 2022-11-03 11:14 | HP.PTDCSUM_ITS ---
Discharge Summary D/C summary: It has been my pleasure to treat JONEL ORTEGA referred by Dr. Vikram Prince MD, with the diagnosis of Chronic Left RTC Tendonitis for a total of 9 visit(s). Discharge Date: Please see the following information for a summary of their discharge status. Subjective Subjective: Patient reports that the shoulder is 50% better. She does have a little more motion and less pain but its not where she needs it to be. Worst: 09/12 which is today- thinks that maybe she slept on it funny. She is planning to go back and see the MD. She goes to see Dr. Salcido today for her hand to see if she needs to have surgery- she has completed OT. Pain L SH: Pain Intensity (Out of 10): 7 Overall Improvement % Improvement: 50 Objective Objective/Function: Posture: FH, RS- guarding of the left UE Gait: decreased arm swing of the left UE with mild guarding- no LE deviation noted- good trae ROM: cervical: WFL in all planes Shoulder: AROM: Flexion: 50 degrees with pain abd: 50 degrees with pain and compensation IR: bra line ER: 20 degrees with pain PROM: Flexion: 110 degrees with pain at end range Abd: 50 degrees with pain, ER: 60 degrees with pain. Strength: Pigment Weigher: 10lbs, Elbow: 4/5, Shoulder: isometric: 4-/5 at neutral with mild increase in discomfort. Sensation: WFL to gross touch bilateral. Goals Goal 1:: Patient will be I with HEP and progression Goal Progress: Goal Met Goal 2:: Patient will demo increase of 20 degrees of ROM in all planes of the left shoulder Goal Progress: Not Progressing Goal 3:: Patient will maintain proper posture t/o tx session to demo increased scap s/s. Goal Progress: Not Progressing Goal 4:: Patient will report 80% improvement Goal Progress: Progressing Plan Plan: 11/03/22: Discharge to [facility] and return to MD for further evaluation Focus on left UE ROM- GENTLE- isometric and postural strength/stabilization D/C Information d/c sentence: If there are questions or concerns regarding this patient's physical therapy, please feel free to call me at [phone]. Thank you for the referral of this patient. Sincerely, Jennifer Vuong, DPT Balance/Gait/Functional tests Balance/Special Test Scores Quick DASH Score: 56.8175 Improvement % Improvement: 50
--- NOTE | 2022-12-01 17:20 | HP.PTDCSUM ---
Discharge Summary D/C summary: It has been my pleasure to treat JONEL ORTEGA referred by Dr. Vikram Prince MD, with the diagnosis of Chronic Left RTC Tendonitis for a total of 9 visit(s). Discharge Date: Please see the following information for a summary of their discharge status. Subjective Subjective: Patient reports that the shoulder is 50% better. She does have a little more motion and less pain but its not where she needs it to be. Worst: 09/12 which is today- thinks that maybe she slept on it funny. She is planning to go back and see the MD. She goes to see Dr. Salcido today for her hand to see if she needs to have surgery- she has completed OT. Pain L SH: Pain Intensity (Out of 10): 7 Overall Improvement % Improvement: 50 Objective Objective/Function: Posture: FH, RS- guarding of the left UE Gait: decreased arm swing of the left UE with mild guarding- no LE deviation noted- good trae ROM: cervical: WFL in all planes Shoulder: AROM: Flexion: 50 degrees with pain abd: 50 degrees with pain and compensation IR: bra line ER: 20 degrees with pain PROM: Flexion: 110 degrees with pain at end range Abd: 50 degrees with pain, ER: 60 degrees with pain. Strength: Crystal Gazer: 10lbs, Elbow: 4/5, Shoulder: isometric: 4-/5 at neutral with mild increase in discomfort. Sensation: WFL to gross touch bilateral. Goals Goal 1:: Patient will be I with HEP and progression Goal Progress: Goal Met Goal 2:: Patient will demo increase of 20 degrees of ROM in all planes of the left shoulder Goal Progress: Not Progressing Goal 3:: Patient will maintain proper posture t/o tx session to demo increased scap s/s. Goal Progress: Not Progressing Goal 4:: Patient will report 80% improvement Goal Progress: Progressing Plan Plan: 11/03/22: Discharge to [facility] and return to MD for further evaluation Focus on left UE ROM- GENTLE- isometric and postural strength/stabilization D/C Information d/c sentence: If there are questions or concerns regarding this patient's physical therapy, please feel free to call me at [phone]. Thank you for the referral of this patient. Sincerely, Jennifer Vuong, DPT Balance/Gait/Functional tests Balance/Special Test Scores Quick DASH Score: 56.8175 Improvement % Improvement: 50
== END 2022-11-03 19:00 | disposition home or self-care (01) ==
LOC: PT 11:00
PROVIDERS: PCP Family Medicine; Referring Provider Family Medicine; Visit Provider Family Medicine
DX: G56.01 Carpal tunnel syndrome, right upper limb (principal); M77.8 Other enthesopathies, not elsewhere classified
CPT/HCPCS: 97035; 97110; 97140; 97162; 97164; 97166; 97530

== ENCOUNTER → 2022-12-21 | Outpatient (CLI) | payer MEDICARE, OTHER, SELFPAY ==
--- NOTE | 2022-12-21 10:34 | EKG12_ITS ---
Test Reason : PREOP Blood Pressure : / mmHG Vent. Rate : 077 BPM Atrial Rate : 077 BPM P-R Int : 106 ms QRS Dur : 078 ms QT Int : 376 ms P-R-T Axes : 037 029 044 degrees QTc Int : 425 ms Sinus rhythm with short GA Otherwise normal ECG Confirmed by INESSA SHANKS, SMITA ([id number]), make up editor FRANCISCO JAVIER SAMUEL ([id number]) on 12/22/2022 6:52:41 AM Referred By: Kip Salcido Confirmed By:SMITA WYLIE MD
--- NOTE | 2022-12-21 10:37 | EKG12_ITS ---
Test Reason : PREOP Blood Pressure : / mmHG Vent. Rate : 076 BPM Atrial Rate : 076 BPM P-R Int : 082 ms QRS Dur : 074 ms QT Int : 378 ms P-R-T Axes : -07 003 040 degrees QTc Int : 425 ms Sinus rhythm with short GA Otherwise normal ECG Confirmed by INESSA SHANKS, SMITA ([id number]), editorial clerk BENNY STYLES ([id number]) on 01/04/2023 1:58:09 PM Referred By: Kip Salcido Confirmed By:SMITA WYLIE MD
--- NOTE | 2022-12-21 11:25 | NEURO_ITS ---
NCS and/or EMG Patient Report Ordering Doctor: Kip Salcido DATE OF SERVICE: 12/21/22 Glenys presents for electrodiagnostic testing of the right upper limb. She reports numbness and tingling in the first 3 digits of the right hand. Electrodiagnostic findings: Right median motor nerve demonstrates prolonged la tency with normal amplitude and reduced conduction velocity right ulnar motor response is within normal limits. Borderline prolonged right median F-wave. Absent right median sensory latency at the wrist and palm. Normal ulnar and radial sensory responses. Needle EMG testing was performed in the right upper limb. All muscles tested showed no evidence of denervation with normal motor unit action potentials. Electrodiagnostic assessment: This is an abnormal study in the right upper limb. 1. Electrodiagnostic findings suggestive of right-sided median mononeuropathy. This is consistent with a moderate right carpal tunnel syndrome. Multi Select Codes Neurology Neurology Interp Codes: 63743-29 Musc test done w/n test comp (interp) and 12050-09 Nrv cndj test 7-8 studies (interp)
[2022-12-21 15:23] LABS: Hematocrit 46.6 % (37-47); Hemoglobin 14.9 g/dL (12.0-15.0); Mean Corpuscular Hgb 27.5 pg (27.0-32.0); Mean Corpuscular Volume 86.1 fL (81-99); Mean Platelet Vol. 10.1 fl (6.2-12.0); Platelet Count 322 K/mm3 (150-450); RBC Distribution Width CV 13.4 % (11.6-14.6); RBC Distribution Width SD 41.1 fl (35.1-43.9); Red Blood Count 5.41 M/mm3 (4.2-5.4); White Blood Count 7.9 K/mm3 (4.4-11.0)
[2022-12-21 15:43] LABS: Anion Gap 4 (5-15); BUN 20 mg/dL (7-18); BUN/Creat Ratio 20.9 RATIO (10-20); Calcium,Total 10.1 mg/dL (8.5-10.1); Chloride 108 mmol/L (98-107); Creatinine, Serum 0.96 mg/dL (0.55-1.02); EST Glomerular Filtration Rate 61 mL/min (>60); Est Glom Filt Rate - Afr Amer 73 mL/min (>60); Glucose 97 mg/dL (74-106); Potassium 3.6 mmol/L (3.5-5.1); Sodium Level 141 mmol/L (136-145)
== END | disposition home or self-care (01) ==
PROVIDERS: PCP Family Medicine; Referring Provider Orthopaedic Surgery; Visit Provider Orthopaedic Surgery
DX: Z01.818 Encounter for other preprocedural examination (principal); G56.01 Carpal tunnel syndrome, right upper limb; Z01.810 Encounter for preprocedural cardiovascular examination
CPT/HCPCS: 36415; 80048; 85027; 93005; 95886; 95910

== ENCOUNTER 2023-02-14 11:30 | Outpatient (RCR) | payer MEDICARE, OTHER, SELFPAY ==
--- NOTE | 2023-01-05 13:52 | HP.PTEVAL ---
Patient's Visit Information Visit Information Visit Information: JONEL ORTEGA is a 72 year old F referred to Physical Therapy by Dr. Kip Salcido DO with a diagnosis of L meniscal repair 12/29/22. Date of Evaluation: 01/05/23 Physical Therapist: Jarod Cobian, PT, ATC Visit Plan Frequency: 2-3x /Week Duration: 4-6 Weeks Plan: L knee stretching and strengthening, balance and proprio, gait training, core stab ex's, bike, and HEP Subjective Subjective: DOS: 12/29/22. Pt reports she had a L knee meniscal repair performed at that time. Pt reports she is weightbearing as tolerated at this time. Pt reports she has been using crutches since the DOS. Pt reports she is still in a lot of pain at this time. Pt reports she tore her meniscus by rotating on her fixed leg after throwing something in the trash can. Pt notes when she turned, her knee went one way and her body went the other way. Pt reports she has sleep difficulty at this time secondary to pain. Pt denies tingling or numbness at this time. Pt has stairs to get into her house that she is able to negotiate sideways as long as she has a rail to hold on to. Pt is retired at this time. Pt reports her greatest complaint at this time is that she is unable to walk very far which makes grocery shopping hard. 4/10 pain at rest, 8/10 at worst (prolonged standing or ambulation) Pain L meniscal repair: Pain Intensity (Out of 10): 4 Pain Intensity Range: 8 Objective Objective: Neuro: B LE sensation is WNL to light touch. B achilles reflex= 2/3 Girth at joint line: R knee 36 cm, L knee 39 cm ROM: L knee 0-10-110, R knee 0-140 MMT: R knee flex= 32, ext= 39 #F: L knee flex= 24, ext= 29 #F Gait: Pt is able to ambulate approximately 140 feet from lobby to eval room with use of 2 crutches Balance/Special Test Scores Lower Extremity Functional Score: 21 Goals Goal 1:: Decrease L knee pain x 50% to aid with sleep Goal Time Frame: 4-6 Weeks Goal 2:: Increase L knee ROM x 30 degrees to aid with restoring a more normalized gait pattern Goal Time Frame: 4-6 Weeks Goal 3:: Increase L knee strength x 20 #F to aid with stair negotiation Goal Time Frame: 4-6 Weeks Goal 4:: I with HEP Goal Time Frame: 4-6 Weeks Rehabilitation Potential Physical Therapy Diagnosis: Pt has L knee pain, weakness, and limited ROM secondary to L meniscal repair Rehabilitation Potential: Good Anticipated Interventions Patient/Client Instruction: Educate patient on: Condition and Plan of Care For the Purpose of:: To improve self management Therapeutic Exercise to Include: Strength training, Endurance training, Balance training, Flexibilty training, Gait and locomotor training, Active ROM and Dynamic Lumbar Stabilization For the Purpose of:: To decrease pain, To increase ROM and To improve muscle performance and motor function Cryotherapy (ice pack, ice massage): Yes For the Purpose of:: To decrease pain Text: Thank you for the opportunity to evaluate your patient. For Medicare and Medicare HMO plans, please review the plan of care and approve it. It will need to be FAXED BACK to us at [phone] for Medicare purposes. For Medicare only, by signing this I certify the plan of care. Please let me know if there are questions or concerns regarding this plan of care. Physician Signature: Date:
--- NOTE | 2023-02-14 12:59 | HP.PTREVAL ---
Re-Evaluation Intro: Dr. Kip Salcido, DO, It has been my pleasure to treat JONEL ORTEGA over the last 11 visits for L meniscal repair 12/29/22. Please see the progress note below for an update on the physical therapy plan of care! Subjective Subjective: I dont really have pain, its soreness. Pt still has difficulty with sleep at this time Objective Objective/Function: L knee pain ranges from 0-5/10 L knee ROM: 0-9-115 degrees L knee MMT: flex= 30, ext= 39 #F Pt is I with HEP Plan Plan Plan: Discharge or follow up in 1 month Balance/Gait/Functional tests Balance/Special Test Scores Lower Extremity Functional Score: 53 Goals Goals Goal 1:: Decrease L knee pain x 50% to aid with sleep Goal Time Frame: 4-6 Weeks Goal Progress: Progressing Goal 2:: Increase L knee ROM x 30 degrees to aid with restoring a more normalized gait pattern Goal Time Frame: 4-6 Weeks Goal Progress: Progressing Goal 3:: Increase L knee strength x 20 #F to aid with stair negotiation Goal Time Frame: 4-6 Weeks Goal Progress: Progressing Goal 4:: I with HEP Goal Time Frame: 4-6 Weeks Goal Progress: Goal Met Anticipated Interventions Anticipated Interventions Patient/Client Instruction: Educate patient on: Condition and Plan of Care For the Purpose of:: To improve self management Therapeutic Exercise to Include: Strength training, Endurance training, Balance training, Flexibilty training, Gait and locomotor training, Active ROM and Dynamic Lumbar Stabilization For the Purpose of:: To decrease pain, To increase ROM and To improve muscle performance and motor function Cryotherapy (ice pack, ice massage): Yes For the Purpose of:: To decrease pain Re-Evaluation Ending Re-evaluation ending: Please do not hesitate to contact me at [phone] by phone or if you have questions or concerns regarding this new plan of care! Sincerely, Jarod Cobian, PT, ATC
== END 2023-02-14 19:00 | disposition home or self-care (01) ==
LOC: PT 11:30
PROVIDERS: PCP Family Medicine; Referring Provider Orthopaedic Surgery; Visit Provider Orthopaedic Surgery
DX: S83.412D Sprain of medial collateral ligament of left knee, subsequent encounter (principal); S83.242D Other tear of medial meniscus, current injury, left knee, subsequent encounter; M17.12 Unilateral primary osteoarthritis, left knee
CPT/HCPCS: 97110; 97161; 97164

== ENCOUNTER → 2023-02-16 | Outpatient (CLI) | payer MEDICARE, OTHER, SELFPAY ==
[2023-02-16 10:14] LABS: Hematocrit 41.3 % (37-47); Hemoglobin 13.1 g/dL (12.0-15.0); Mean Corp Hgb Conc 31.7 g/dL (32-36); Mean Corpuscular Hgb 27.2 pg (27.0-32.0); Mean Corpuscular Volume 85.7 fL (81-99); Mean Platelet Vol. 9.6 fl (6.2-12.0); Platelet Count 265 K/mm3 (150-450); RBC Distribution Width CV 13.4 % (11.6-14.6); RBC Distribution Width SD 41.9 fl (35.1-43.9); Red Blood Count 4.82 M/mm3 (4.2-5.4); White Blood Count 6.8 K/mm3 (4.4-11.0)
[2023-02-16 11:57] LABS: Anion Gap 3 (5-15); BUN 28 mg/dL (7-18); BUN/Creat Ratio 32.5 RATIO (10-20); Calcium,Total 8.7 mg/dL (8.5-10.1); Chloride 107 mmol/L (98-107); Creatinine, Serum 0.86 mg/dL (0.55-1.02); EST Glomerular Filtration Rate 68 mL/min (>60); Est Glom Filt Rate - Afr Amer 83 mL/min (>60); Glucose 89 mg/dL (74-106); Potassium 3.9 mmol/L (3.5-5.1); Sodium Level 138 mmol/L (136-145)
== END | disposition home or self-care (01) ==
LOC: MTLAB 09:22
PROVIDERS: PCP Family Medicine; Referring Provider Physician Assistant; Visit Provider Physician Assistant
DX: Z01.810 Encounter for preprocedural cardiovascular examination (principal); Z01.818 Encounter for other preprocedural examination
CPT/HCPCS: 36415; 80048; 85027

== ENCOUNTER 2023-07-06 08:00 | Outpatient (RCR) | payer MEDICARE, OTHER, SELFPAY ==
--- NOTE | 2023-06-23 06:48 | HP.OTEVAL ---
Patient's Visit Information Visit Information Visit Information: JONEL ORTEGA is a 73 year old F, referred to Occupational Therapy by Yung Castañeda PA-C, with a diagnosis of CTS. Date of Evaluation: 06/22/23 Occupational Therapist: ISH Whittington/Evelyne, CHT Subjective Subjective: This 73 year old female was seen for OT eval with dx of CTS right hand. Pt states she underwent sx 2023. Pt states since sx she has had increase numbness. Pt states she had MRI and [facility] said everything looked good. pt states she was given a 7 day steroid pack and was told to wear brace all times for one week- tomorrow will be the one week and pt will go back to wearing brace at night- pt states no change in tingling after taking steroid pack or wearing brace. pt states she also has not strength in right hand that limits her with ADLs and IADLs. Pain right hand: Current Pain Intensity: 7 Pain Intensity Range: 7 ROM Wrist: right 65/45 left 75/50 CMC: right 10 left 20 MP: right 65 left 40 IP: right 45 left 55 Palmar Abduction: right 35 left 35 Strength Paint Coating Machine Operator: right 15# left 35# Lateral Pinch: right unable left 10# Tripod Pinch: right unable left 6# Tip-to-Tip Pinch: right unable left 6# Strength Comments: pt demo with weakness of median nerve Sensation Thumb: right4.31 diminished protective sensation left 2.83 Normal Index: right 3.84 diminished protective sensation left 2.83 Middle: right 3.61 diminished light touch left 2.83 Ring: right 2.83 left 2.83 Normal Little: right 2.83 left 2.83 normal Quick DASH-Disab of Arm,Shoulder& Hand Quick DASH Score: 59.0900 Goals Goal:: PT will demo an increase in director of medical staff services strength by 20# to increase independent with basic occupations of daily living to return pt to PLOF by D/C. Pt will demo an increase in lateral and tripod pinch by 2# to increase pts independent with opening baggies, containers at PLOF by D/C. Goal:: pt will report no pain greater than 1/10 with use of right hand with ADLs by d/c Goal:: pt will demo increase in ability to manipulate coins to increase IND with IADLs by d/c pt will demo the ability to write legibly to fill out paperwork by d/c Goal:: pt will demo a decrease in monofilament testing into diminished light touch sensation to decrease pts risk of cutting or burning herself with meal prep. pt will demo understanding of visual compensatory lizette. when using knife for cooking by d/c Goal:: pt will demo understanding of scar mtg by end of 4th visit to decrease risk of scar adhesion to nerve. Goal:: Pt will demo understanding of joint protection and ergonomics when performing BADLs and IADLs by d/c Pt will demo understanding of adaptive Equipment use to decrease stress on joints to allow pt to perform BADSL and IADLS at VAUGHN level. Rehabilitation General Assessment: Pt demo with weakness and decreased sensation as well as increase in tingling that has limited pt with ADLs and IADLs pt would benefit from skilled OT services 2x week for 12 weeks to increase pts strength and IND with ADLs. Today therapist ed. pt on use of elastomer over incision to wear at night to soften hypertrophic scaring. therapist also ed pt on median nerve glides. Pt demo understanding and agrees to POC. Rehabilitation Potential: Good Anticipated Interventions Anticipated Interventions: A/AAROM/PROM, Strengthening, Scar Care, Triggerpoint Release, Sensory Retraining, Modalities, Orthoses, Joint Protection/Energy Conservation and Ergonomic Education Visit Plan Frequency: 2-3x /Week Duration: 3 Months General Plan: will work on median nerve glides PRE to what is laina. Scar mtg. TEXT: Thank you for the opportunity to evaluate your patient. For Medicare and Medicare HMO plans, please review the plan of care and approve it. It will need to be FAXED BACK to us at [phone] for Medicare purposes. Please let me know if there are questions or concerns regarding this plan of care. Physician Signature: Date:
== END 2023-07-06 19:00 | disposition home or self-care (01) ==
LOC: OT 08:00
PROVIDERS: PCP Family Medicine; Referring Provider Physician Assistant; Visit Provider Physician Assistant
DX: M19.041 Primary osteoarthritis, right hand (principal); G56.01 Carpal tunnel syndrome, right upper limb
CPT/HCPCS: 97035; 97110; 97140; 97166

== ENCOUNTER → 2023-08-23 | Outpatient (CLI) | payer MEDICARE, OTHER, SELFPAY ==
--- NOTE | 2023-08-23 11:59 | NEURO ---
NCS and/or EMG Patient Report Ordering Doctor: Channing Morelos DATE OF SERVICE: 08/23/23 Silvia presents for electrodiagnostic testing of the right upper limb. She reports numbness in the first 3 digits of the right hand. She underwent carpal tunnel surgery in March 2023 but reports no improvement in symptoms. Electrodiagnostic findings: Right median motor nerve demonstrates prolonged latency with reduced amplitude and normal conduction velocity. Right ulnar motor responses within normal limits, including conduction across the elbow. Prolonged right median F?wave. Absent right median sensory latency at the wrist. Normal right ulnar and radial sensory responses. Needle EMG testing was performed the right upper limb. All muscles tested showed no evidence of denervation with normal motor unit action potentials. Electrodiagnostic impression: This is an abnormal study in the right upper limb 1. Electrodiagnostic findings suggestive of right-sided median mononeuropathy. This is consistent with a severe right carpal tunnel syndrome. 2. There is no electrodiagnostic evidence for ulnar neuropathy, including cubital tunnel syndrome. 3. There is no electrodiagnostic evidence for cervical radiculopathy. Multi Select Codes Neurology Neurology Interp Codes: 44124-09 Musc test done w/n test comp (interp) and 91345-71 Nrv cndj tst 5-6 studies (interp)
== END | disposition home or self-care (01) ==
LOC: PSN 09:56
PROVIDERS: PCP Family Medicine; Referring Provider Student in an Organized Health Care Education/Training Program; Visit Provider Student in an Organized Health Care Education/Training Program
DX: G56.01 Carpal tunnel syndrome, right upper limb (principal)
CPT/HCPCS: 95886; 95909

== ENCOUNTER 2024-03-26 11:00 | Outpatient (RCR) | payer MEDICARE, OTHER, SELFPAY ==
--- NOTE | 2023-10-10 13:13 | HP.OTEVAL ---
Patient's Visit Information Visit Information Visit Information: JONEL ORTEGA is a 73 year old F, referred to Occupational Therapy by ARNIE Lai, with a diagnosis of carpal tunnel syndrome R hand. Date of Evaluation: 10/10/23 Occupational Therapist: Odilia Bess, ISH/Evelyne, CHT Subjective Subjective: This 73-year-old female arrives with dx of R carpal tunnel syndrome. March 09 first carpal tunnel release, September 19 second carpal tunnel release 3 weeks sp. Pt is dominant L hand for writing/eating and dominant R hand for everything else. Pt demo limited ROM, decreased strength and sensation of R hand. 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 Pt states numbness and tingling in R thumb, IF, MF. Pain R hand/wrist: Current Pain Intensity: 7 Pain Intensity Range: 7 ROM Wrist: R 35/13 L 45/40 ROM Comments: shoulder, elbow, forearm, hand, fingers WFL Strength Product Management Manager: R 7# L 35# Lateral Pinch: R 5# L 12# Tripod Pinch: R 3# L 8# Sensation Thumb: R 3.61 L 2.83 Index: R 3.61 L 2.83 Middle: R 2.83 L 2.83 Ring: R 2.83 L 2.83 Little: R 2.83 L 2.83 Sensation Comments: R thumb and IF presented with decreased sensation compared to unaffected side Quick DASH-Disab of Arm,Shoulder& Hand Quick DASH Score: 65.9075 Goals Goal:Daily scar massage when approriate: Yes Goal:ROM equal to unaffected hand: Yes Goal:Product Management Manager/Pinch strength at least 75% of unaffected hand: Yes Goal:No pain with affected hand use: Yes Goal:Full use of affected hand in daily activities including work: Yes Goal:Improvement in sensation documented by [place] monofiliaments: Yes Goal:Decrease scar hypersensitivity: Yes Other Goal: pt will improve QuickDASH score by 30 points or more to maximize use of RUE. (65.9) pt will report increase I in all ADLs/IADLs by end of POC. Rehabilitation General Assessment: This 73-year-old female arrives with dx of R carpal tunnel syndrome resulting in limited R wrist ROM and decreased strength and sensation of R hand impacting ability with dressing putting on bra, cooking, carrying heavy items and groceries with R hand, pressing buttons (microwave, washer), heavy pumper head, and other daily functional tasks. Pt is recommended to complete OT 1x a week for 4 weeks to address above impairments. This therapy session was directly supervised and doc. approved by Odilia eBss OTR/Evelyne, CHT. Rehabilitation Potential: Good Anticipated Interventions Anticipated Interventions: A/AAROM/PROM, Strengthening, Scar Care, Sensory Retraining, Modalities, Ergonomic Education, Sensory Stimulation, Education re assistive Equipment, Education re Diagnosis and Home Program Visit Plan Frequency: 1x/Week Duration: 4 Weeks General Plan: decrease pain improve ROM increase strength use hand normally again with ADLS/IADLs TEXT: Thank you for the opportunity to evaluate your patient. For Medicare and Medicare HMO plans, please review the plan of care and approve it. It will need to be FAXED BACK to us at [phone] for Medicare purposes. Please let me know if there are questions or concerns regarding this plan of care. Physician Signature: Date:
--- NOTE | 2024-03-26 13:30 | HP.OTDCSUM ---
Discharge Summary D/C Summary: It has been my pleasure to treat JONEL ORTEGA under orders from ARNIE Lai, for the diagnosis of carpal tunnel syndrome R hand for a total of 11 visit(s). Please see the following information for a summary of their discharge status. 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 Pt is very happy she has regained sensation. pt at this time will cont. with using hand daily. pinch strengthening. adding textures to nail clippers or other objects to increase pts IND, with self-care. pt demo with MP ulnar dev. with resistive pinch. with right therapist ed. advised pt not to stress this to much and therapist farideh. orthosis for use as needed. pt agree with D/C. Goals Patient Goals: Regain Strength, Decrease Pain, Improve Fine Motor Skills, Use Hand/Wrist/Arm Normally Again, Decrease Tingling/Numbness, Increase ROM, Be More Independent in ADLS, Resume Former Household Responsibilities (Cooking,Cleaning,Yard, etc.) and Resume Hobbies Goal:Daily scar massage when approriate: Yes Goal:ROM equal to unaffected hand: Yes Goal:Radio Operator/Pinch strength at least 75% of unaffected hand: Yes Goal:No pain with affected hand use: Yes Goal:Full use of affected hand in daily activities including work: Yes Goal:Improvement in sensation documented by [place]-Francis monofiliaments: Yes Goal:Decrease scar hypersensitivity: Yes Other Goal: pt will improve QuickDASH score by 30 points or more to maximize use of RUE. (65.9) pt will report increase I in all ADLs/IADLs by end of POC. Plan Plan: return in 2 months added MP ulnar support D/C Information Discharge Comments: pt has met OT goals and at this time will cont with a HEP to continue to improve her functional strength. - pt agrees with D.C. d/c sentence: If there are questions or concerns regarding this patient's occupational therapy, please fell free to call me at [phone]. Thank you for the referral of this patient. Sincerely, Odilia Bess, JEBR/Evelyne, CHT
== END 2024-03-26 15:09 | disposition home or self-care (01) ==
LOC: OT 11:00
PROVIDERS: PCP Family Medicine; Referring Provider Physician Assistant Surgical; Visit Provider Physician Assistant Surgical
DX: G56.01 Carpal tunnel syndrome, right upper limb (principal); M19.041 Primary osteoarthritis, right hand
CPT/HCPCS: 97035; 97110; 97140; 97165; 97530

== ENCOUNTER → 2024-04-12 | Outpatient (CLI) | payer MEDICARE, OTHER, SELFPAY ==
--- NOTE | 2024-04-12 12:10 | BI_ITS ---
PROCEDURE: SCRN MAMM (CAD)W/JAMISON BILAT REASON FOR EXAM: F, Age 74 y/o, no family history. Routine annual follow-up. TECHNIQUE: Bilateral screening digital breast tomosynthesis with 2D and 3D images. Computer aided detection. COMPARISON: Prior exam(s) dating back to May 05, 2022.. FINDINGS: The breasts are almost entirely fatty. Stable examination. No suspicious masses, areas of developing architectural distortion, or suspicious calcifications. BI/SCRN MAMM (CAD)W/JAMISON BILAT IMPRESSION: BI-RADS 1: NEGATIVE. RECOMMEND ANNUAL MAMMOGRAPHIC SCREENING. Follow-up code: Routine Follow-up The patient will be notified of the results by letter. Reading Location: [place] [id number]
== END | disposition home or self-care (01) ==
LOC: OPBI 12:07
PROVIDERS: PCP Family Medicine; Referring Provider Family Medicine; Visit Provider Family Medicine
DX: Z12.31 Encounter for screening mammogram for malignant neoplasm of breast (principal)
CPT/HCPCS: 77063; 77067